=== PATIENT | male | born 2000 | race Caucasian/White ===

== ENCOUNTER 2022-06-18 04:51 | Emergency (ER) | payer OTHER ==
[2022-06-18] MEDS ORDERED: PROPARACAINE 0.5% OPHTH SOL 15ML XX ONE (07:15)
[2022-06-18] MEDS ORDERED: FLUORESCEIN OPHTH 1 MG STRIP XX ONE (07:15)
[2022-06-18] MEDS ORDERED: ERYTHROMYCIN OPHTH OINT OD ONE (07:35)
[2022-06-18] MEDS ORDERED: ERYT5OIN25 OP (07:35)
[2022-06-18] MEDS ORDERED: IBUPROFEN 600MG TAB PO ONE (07:35)
[2022-06-18 07:47] VITALS: BP 127/71
== END 2022-06-18 07:54 | disposition home or self-care (01) ==
LOC: M ED 04:51
DX: S05.01XA Injury of conjunctiva and corneal abrasion without foreign body, right eye, initial encounter (principal); W22.8XXA Striking against or struck by other objects, initial encounter; Y99.1 Military activity

== ENCOUNTER 2022-08-11 06:41 | Emergency (ER) | payer OTHER ==
[~2022-08-11] VITALS: Ht 190.5 cm; Wt 107.0 kg
[~2022-08-11 06:41] MED LIST: ERYT5OIN25 OP
[2022-08-11] MEDS ORDERED: KETOROLAC 30 MG/ML 1ML VIAL IV ONE (10:50)
[2022-08-11] MEDS ORDERED: METOCLOPRAMIDE INJ 10MG/2ML VIAL IV ONE (10:50)
[2022-08-11] MEDS ORDERED: diphenhydrAMINE 50MG/ML VIAL IV ONE (10:50)
[2022-08-11] MEDS ORDERED: NS 1,000 ML IV ONE (10:55)
[2022-08-11 12:00] LABS: RSV AMPLIFICATION NEGATIVE (NEGATIVE)
[2022-08-11 12:12] VITALS: BP 125/80
== END 2022-08-11 12:15 | disposition home or self-care (01) ==
LOC: M ED 06:41
DX: G43.909 Migraine, unspecified, not intractable, without status migrainosus (principal)
CPT/HCPCS: 70450; 80047; 87428; 87631; 96361; 96374; 96375; 99284; J1200; J1885; J2765